=== PATIENT | female | born 1960 | race Caucasian/White ===

== ENCOUNTER → 2016-10-10 | Outpatient (CLI) | payer BC ==
--- NOTE | 2016-10-11 12:40 | MAMMOGRAPHY REPORT ---
BILATERAL DIGITAL SCREENING MAMMOGRAM TOMOSYNTHESIS WITH CAD: 10/10/2016 CLINICAL HISTORY: Asymptomatic. Personal history of breast cancer. TECHNIQUE: Bilateral breast tomosynthesis in addition to standard 2D mammography was performed. Cur rent study was also evaluated with a Computer Aided Detection (CAD) system. COMPARISON: Comparison is made to exams dated: 02/27/2015 mammogram, 02/17/2014 mammogram, 02/15/2013 mammogram, 11/18/2011 mammogram, 10/06/2010 mammogram, and 10/12/2009 mammogram. BREAST COMPOSITION: There are scattered areas of fibroglandular density in both breasts. FINDINGS: There are post-therapeutic changes in the left breast, from previous lumpectomy and radiat ion therapy. In an-shaped metallic biopsy marker is present in the upper outer middle to posterior right breast, and there are stable post biopsy changes in the central right breast at the site of pr ior biopsy. There are benign rim calcifications scattered bilaterally. No suspicious mass, archite ctural distortion or cluster of suspicious microcalcifications is seen. IMPRESSION: ACR BI-RADS CATEGORY 1: NEGATIVE There is no mammographic evidence of malignancy. A 1 year screening mammogram is recommended. Given the personal history of left breast cancer and reported history of BRCA2 positivity, consider addit ional surveillance with breast MRI. The patient will receive written notification of the results. Approximately 10% of breast cancers are not detected with mammography. A negative mammographic repor t should not delay biopsy if a clinically suggestive mass is present. Dora Mckay M.D. ay/:10/10/2016 16:47:03 Screener And Blender: Liv QUISPE)(M), [facility] letter sent: Normal 1/2 BI-RADS Code: ACR BI-RADS Category 1: Negative
== END | disposition home or self-care (01) ==
LOC: C.MAMM 13:09
PROVIDERS: ATTEND Family Medicine
DX: Z12.31 Encounter for screening mammogram for malignant neoplasm of breast (principal); Z85.3 Personal history of malignant neoplasm of breast

== ENCOUNTER → 2016-10-15 | Outpatient (CLI) | payer BC ==
[2016-10-15 13:46] LABS: CHOLESTEROL/HDL RATIO 5.2; THYROID STIMULATING HORMONE 3.46 uIu/ml (0.300-4.500)
== END | disposition home or self-care (01) ==
LOC: C.LABBC 11:44
PROVIDERS: ATTEND Family Medicine
DX: E03.9 Hypothyroidism, unspecified (principal)

== ENCOUNTER → 2017-03-07 | Outpatient (CLI) | payer BC ==
[~2017-03-07] MED LIST: GADAVIST IV PRN
--- NOTE | 2017-03-09 14:44 | MAMMOGRAPHY REPORT ---
BREAST MRI OF BOTH BREASTS : 03/07/2017 CLINICAL HISTORY: 56-year-old woman with BRCA2 gene and personal history of left breast cancer diagno sed in 2006 status post breast conservation therapy. She presents for additional MRI surveillance. COMPARISON: Comparison is made to exams dated: 02/27/2015 mammogram, 02/17/2014 mammogram, 09/05/2013 m ammogram, 02/15/2013 mammogram, 11/18/2011 mammogram, and 10/06/2010 mammogram. Prior breast MRIs dated 09/11/2015, 08/08/2014. Breast ultrasound dated 09/18/2007, diagnostic mammogram dated 09/18/2007. TECHNIQUE: Using a 1.5 Lakeshia magnet and dedicated breast coil, multisequence axial images were obtain ed through the breasts. After uneventful IV administration of 8.4 mL of Gadavist, dynamic multiphase contrast-enhanced axial images, and sagittal postcontrast were obtained. Temporal subtraction axial images and 3-D MIP images are provided. Everything was then reviewed on a 3-D workstation, [employer]. FINDINGS: Right breast: There is minimal background parenchymal enhancement. There is susceptibility artifact from a metallic biopsy marker clip in the 9:00 middle one third of the right breast. There is an irr egular nonenhancing mass of tissue 1 cm medial to the biopsy marker clip. Given the prior air pocket and small layering hematoma seen on the post-MRI biopsy mammogram images in the same location dated 09/05/2013, this most likely represents a healed biopsy cavity. This has also appeared stable on aliyah mograms and MRIs since 2012. There is a new ovoid enhancing mass in the 1:00 middle to posterior rig ht breast that measures 4.1 x 5.9 x 6.0 mm (axial page 53/116 and sagittal page 97/128). There are m ixed persistent and plateau kinetics, no associated T2 hyperintensity. This was not present on the p revious breast MRI dated 08/08/2014, and not definitely seen on the images from 09/11/2015, although not all of the images are included from that outside exam. Nevertheless, second look ultrasound with possible ultrasound-guided core biopsy is recommended. If second look ultrasound is un-yielding, MR I guided biopsy is recommended, particularly given the history of BRCA2 positivity. No other new santos picious enhancing mass, non-mass enhancement or unexpected architectural distortion is seen in the ri ght breast. No focal skin thickening or nipple retraction. No suspicious right axillary lymphadenop athy. Left breast: There is minimal background parenchymal enhancement. There is expected architectural di stortion in the far posterior left 3:00 through 4:00 and retroareolar breast, at the site of prior steff mpectomy. No new suspicious enhancing mass, non-mass enhancement, unexpected architectural distortio n or suspicious kinetics are seen within the left breast. No new focal skin thickening or nipple ret raction. No suspicious left axillary lymphadenopathy. IMPRESSION: ACR BI-RADS CATEGORY 4B: INTERMEDIATE SUSPICION FOR MALIGNANCY 1. There is a newly visualized 6 mm enhancing mass in the 1:00 right breast that is indeterminate. Targeted second look ultrasound with possible ultrasound-guided core needle biopsy is recommended. I f second look ultrasound is un-yielding, MRI guided biopsy is recommended. 2. Stable postsurgical and posttreatment changes in the 3:00 to 4:00 axis of the left breast, and st able post biopsy changes in the 9:00 right breast. No other suspicious enhancing mass, non-mass enha ncement or or suspicious kinetics is seen throughout the remainder of the right breast or the left br east. 3. No new suspicious axillary adenopathy. A phone call was made to the physician to confirm faxed results were received. The patient will be c alled to schedule an appointment. Dora Mckay M.D. ay/:03/08/2017 22:32:30 Employee Services Manager: dragline mechanic, [facility] letter sent: Abnormal 4/5 BI-RADS Code: ACR BI-RADS Category 4B: Intermediate Suspicion For Malignancy
== END | disposition home or self-care (01) ==
LOC: C.MRI 11:01
PROVIDERS: ATTEND Internal Medicine Hematology & Oncology
DX: Z85.3 Personal history of malignant neoplasm of breast (principal); N63 Unspecified lump in breast

== ENCOUNTER → 2017-03-23 | Outpatient (CLI) | payer BC ==
--- NOTE | 2017-03-23 13:23 | Discharge Instructions ---
Discharge Instructions Procedure Procedure Date: Mar 23, 2017. Reason for visit: Right Mass/2ND Look Us Possible Core. Discharge Discharge Date: Mar 23, 2017. Discharge Diagnosis: status post breast biopsy Instructions Activity Recommendations: Additional Limitations (see below) Return to School/Work: no limitations Recommended Home Diet: No Limitations Provider Instructions: ACTIVITY RECOMMENDATIONS: * No lifting, pushing, pulling or exercising the affected side for three days. RETURN TO SCHOOL/WORK: * You may return to work/school after the procedure, but do not perform any strenuous activities for 24 to 48 hours. MEDICATIONS: * Tylenol (two 325 mg) every four to six hours if needed for mild pain (if not allergic to Tylenol). DIET: * Resume previous diet. SPECIAL CARE INSTRUCTIONS: * Keep biopsy site dry for 24 hours. May shower after 24 hours, but do not soak (bathe) incision. * May remove Tegaderm (plastic patch) tomorrow AFTER showering. * Leave the steri-strips on for one week. Allow the steri-strips to fall off by themselves. If not off after one week, you may remove them. You may place a Bandaid crosswise over the strips, if desired. * Apply ice 10 minutes on and 10 minutes off as needed. * Wear a bra at bedtime to sleep more comfortably for 2-3 days. * Your referring physician should have the results after approximately 5 to 7 business days. * Call for unusual bleeding, fever, drainage, etc or if you have any questions call during normal business hours or after hours call Dr Mcgovern, . FOLLOW UP VISIT: Follow-up with Referring Physician as scheduled. James Bhakta Recommendations: Call your doctor if: * Temperature above 101 degrees * Pain not relieved by pain medicine ordered * There is increased drainage or redness from any incision * You have any unanswered questions or concerns. Your Doctors Instructions noted above were prepared by provider Maria Fernanda Mcgovern. Patient Signature Section: Patient Instructions Signature Page Gunjan Yao Patient (or Guardian) Signature/Date: I have read and understand the instructions given to me by my caregivers. Caregiver/RN/Doctor Signature/Date: The above-named patient and/or guardian has received patient instructions on this date. + Original Patient Signature Page (only) stays with chart. Please make copy for patient.
--- NOTE | 2017-03-24 08:00 | MAMMOGRAPHY REPORT ---
UNILATERAL RIGHT DIGITAL DIAGNOSTIC MAMMOGRAM: 03/23/2017 CLINICAL HISTORY: Status post ultrasound guided biopsy of the right 1:00 breast mass. TECHNIQUE: Postprocedural right CC and ML views were obtained. COMPARISON: Comparison is made to exams dated: 03/07/2017 breast MRI, 10/10/2016 mammogram - [facility], 02/27/2015 mammogram, and 02/17/2014 mammogram. BREAST COMPOSITION: There are scattered areas of fibroglandular density in the right breast. FINDINGS: A new ribbon-shaped biopsy marker clip is seen in the right breast status post ultrasound guided biopsy of the right 1:00 breast mass. The clip is located in a similar location to the findin g seen on the MRI, indicating probable correlation between the biopsied sonographic finding and the e nhancing MRI finding. No significant postbiopsy hematoma is seen. IMPRESSION: POST PROCEDURE IMAGING FOR MARKER PLACEMENT New biopsy marker clip status post ultrasound guided biopsy of the right 1:00 breast mass. Pathology results are pending. Approximately 10% of breast cancers are not detected with mammography. A negative mammographic report should not delay biopsy if a clinically suggestive mass is present. Maria Fernanda Mcgovern M.D. /:03/23/2017 13:32:06 Gaggerman: Alondra DIAZ(Irma)(Clay), [facility] BI-RADS Code: Post Procedure Imaging For Marker Placement
--- NOTE | 2017-03-24 08:09 | MAMMOGRAPHY REPORT ---
THIS REPORT HAS BEEN AMENDED. ULTRASOUND GUIDED BIOPSY RIGHT BREAST: 03/23/2017 CLINICAL HISTORY: Right 1:00 breast mass on ultrasound, which likely corresponds with the enhancing m ass on MRI. PATIENT CONSENT: The procedure, risks and benefits were discussed with the patient and informed writt en consent was obtained. A timeout was performed immediately prior to the procedure. PROCEDURE DESCRIPTION: With ultrasound guidance, aseptic technique, and lidocaine as the local anesth etic (1% lidocaine to anesthetize the skin and 1% lidocaine with epinephrine to anesthetize the deepe r tissues), the mass of concern in the right 1:00 breast was sampled 5 times with a 14-gauge Achieve biopsy needle. Immediately thereafter, with ultrasound guidance, aseptic technique, and lidocaine as the local anesthetic, a metallic localizer clip was placed at the biopsy site. Direct pressure was applied to the site immediately post procedure and hemostasis was achieved. Postprocedure unilateral mammograms were performed to confirm placement of the clip in the expected location of the breast ma ss. The patient tolerated the procedure without complication. She was given wound care instructions . The specimens were sent to pathology for analysis. COMPARISON: Comparison is made to exams dated: 03/23/2017 mammogram, 10/10/2016 mammogram, 03/07/2017 [facility], 02/27/2015 mammogram, and 02/17/2014 mammogram. IMPRESSION: ULTRASOUND GUIDED BIOPSY Ultrasound guided core needle biopsy of the right 1:00 breast mass, with clip placement. The patient will receive pathology results from her referring provider. Maria Fernanda Mcgovern M.D. ah/:03/23/2017 13:29:11 Breastfeeding Educator: Alondra DIAZ(Irma)(Clay), [facility] AMENDMENT: 03/29/2017 Maria Fernanda Mcgovern M.D. The pathology from ultrasound-guided biopsy of the right 1:00 breast mass was reviewed on 03/29/2017. The pathology shows benign breast tissue with chronic inflammation, fibrocystic change, and adenosis . The pathology is concordant with the imaging findings. Recommend follow-up bilateral breast MRI i n 6 months to confirm stability. The results and recommendations were discussed with the patient on 03/29/2017.
--- NOTE | 2017-03-24 08:10 | MAMMOGRAPHY REPORT ---
ULTRASOUND OF RIGHT BREAST: 03/23/2017 CLINICAL HISTORY: Enhancing 6 mm right 1:00 breast mass seen on recent breast MRI, for which second l ook ultrasound was recommended. History of BRCA2 gene positivity. COMPARISON: Comparison is made to exams dated: 03/23/2017 mammogram, 03/07/2017 breast MRI, and 7 mammogram - [facility]. TECHNIQUE: Real-time targeted ultrasound of the right breast was performed. FINDINGS: Real-time, high resolution targeted ultrasound was performed of the right 12 to 1:00 breas t in the region of the enhancing 6 mm mass seen on the recent breast MRI. In the right breast at 1:0 0, 3 cm from the nipple, there is a subtle round hypoechoic mass with non-circumscribed margins measu ring 4 x 4 x 5 mm. This may correspond with the enhancing mass seen on MRI. The mass is indetermina te and ultrasound-guided core needle biopsy is recommended for further evaluation. IMPRESSION: ACR BI-RADS CATEGORY 4: SUSPICIOUS - FOLLOW-UP RECOMMENDED Subtle 5 mm hypoechoic mass in the right 1:00 breast on ultrasound, which likely corresponds with the enhancing mass seen on MRI. The mass is indeterminate and ultrasound-guided core needle biopsy is r ecommended for further evaluation. The results were reviewed with the patient. The biopsy was performed immediately after the ultrasoun d exam. Maria Fernanda Mcgovern M.D. ah/:03/23/2017 13:27:35 Application Architect Manager: Maria Fernanda Mcgovern MD, [facility] BI-RADS Code: ACR BI-RADS Category 4: Suspicious
== END | disposition home or self-care (01) ==
LOC: C.MAMM 12:36
PROVIDERS: ATTEND Internal Medicine Hematology & Oncology
DX: N63 Unspecified lump in breast (principal); N60.11 Diffuse cystic mastopathy of right breast; N60.21 Fibroadenosis of right breast

== ENCOUNTER → 2017-07-15 | Outpatient (CLI) | payer BC ==
[2017-07-15 11:36] LABS: CHOLESTEROL/HDL RATIO 6.2; THYROID STIMULATING HORMONE 4.28 uIu/ml (0.300-4.500)
== END | disposition home or self-care (01) ==
LOC: C.LABBC 09:57
PROVIDERS: ATTEND Physician Assistant
DX: I10 Essential (primary) hypertension (principal); E03.9 Hypothyroidism, unspecified; E78.5 Hyperlipidemia, unspecified

== ENCOUNTER → 2017-09-20 | Outpatient (CLI) | payer BC ==
--- NOTE | 2017-09-21 14:34 | MAMMOGRAPHY REPORT ---
BREAST MRI OF BOTH BREASTS : 09/20/2017 CLINICAL HISTORY: History of benign core needle biopsy of a right 1:00 breast mass March 2017. Also w ith history of left breast cancer status post lumpectomy and remote benign right breast biopsy. The patient is positive for BRCA2 gene. COMPARISON: Comparison is made to exams dated: 03/23/2017 ultrasound biopsy, 03/23/2017 mammogram, 10/10 mammogram, 03/07/2017 breast MRI - [facility], 02/27/2015 mammogram, and 02/18/20 14 mammogram. Prior breast MRI dated 08/08/2014. Technique: The patient was placed prone in a dedicated breast imaging coil. Precontrast axial T1-yonas ghted, axial T2-weighted fat saturation, and axial T1-weighted fat saturation images were obtained. After the administration of 8.5 mL of Gadavist IV contrast, sequential T1-weighted fat saturation dejan ges were obtained. Subtraction images were obtained of the dynamic contrast enhanced sequences, and 3-D reformations were performed. The [employer] software was used for kinetic analysis. Findings: Right breast: There is mild background parenchymal enhancement. Susceptibility artifact is seen from biopsy marker clip in the right 1:00 breast middle depth at the site of prior benign core needle bio psy; the previously seen enhancing lesion in the right 1:00 breast is no longer evident. Given the b enign pathology on core needle biopsy and given the decreased prominence, the finding is considered b enign. In the right breast at 1:00 far posteriorly, there is a 5 mm enhancing focus which demonstrat es corresponding T2 hyperintensity and a mixed plateau/persistent kinetic pattern (series [id number] image 48). In retrospect, similar enhancement was seen in this region on the prior 03/07/2017 exam. The fo cus is probably benign and follow-up is recommended. The remainder of the right breast demonstrates no suspicious enhancing masses or areas of abnormal non-mass enhancement. Clip artifact is seen with in the right 9 o'clock breast from prior benign biopsy. Left breast: There is mild background parenchymal enhancement. Again noted are postsurgical changes in the left lower outer posterior breast from prior lumpectomy. As before, the left breast is smalle r than the right. There are no suspicious enhancing masses or areas of abnormal non-mass enhancement within the left breast. There is no evidence of axillary adenopathy. The chest wall structures are negative. Extramammary s oft tissues are grossly unremarkable. IMPRESSION: ACR-BI-RADS CATEGORY 3: PROBABLY BENIGN 1. The biopsied enhancing lesion within the right 1:00 breast is no longer evident, and is considere d benign given the benign pathology and resolution. 2. Enhancing 5 mm focus in the right 1:00 posterior breast is probably benign. Recommend follow-up bilateral breast MRI in 6 months to confirm stability, especially given the history of BRCA2 gene pos itivity. 3. No MRI evidence of malignancy in the left breast. Maria Fernanda Mcgovern M.D. ah/:09/20/2017 19:12:44 Vp Client Services: baster hand, [facility] letter sent: Follow Up Recommended 3 BI-RADS Code: ACR-BI-RADS Category 3: Probably Benign
== END | disposition home or self-care (01) ==
LOC: C.MRI 07:35
PROVIDERS: ATTEND Internal Medicine Hematology & Oncology
DX: Z85.3 Personal history of malignant neoplasm of breast (principal); Z08 Encounter for follow-up examination after completed treatment for malignant neoplasm; R92.8 Other abnormal and inconclusive findings on diagnostic imaging of breast

== ENCOUNTER → 2017-11-01 | Outpatient (CLI) | payer BC | END | disposition home or self-care (01) | LOC: C.PAPS 18:30 | PROVIDERS: ATTEND Physician Assistant | DX: Z01.419 Encounter for gynecological examination (general) (routine) without abnormal findings (principal); Z11.51 Encounter for screening for human papillomavirus (HPV) ==

== ENCOUNTER → 2017-11-18 | Outpatient (CLI) | payer BC ==
[2017-11-18 10:39] LABS: ALBUMIN 3.9 gm/dl (3.4-5.0); ALT/SGPT 42 U/L (12-78); BLOOD UREA NITROGEN 21 mg/dl (7-18); CALCIUM 8.8 mg/dl (8.5-10.1); CARBON DIOXIDE 29 mmol/L (21-32); CHOLESTEROL 336 mg/dl (0-200); CREATININE 0.93 mg/dl (0.60-1.20); GLUCOSE 95 mg/dl (70-99); POTASSIUM 4.6 mmol/L (3.5-5.1); SODIUM 140 mmol/L (136-145)
[2017-11-18 10:49] LABS: ALKALINE PHOSPHATASE 62 U/L (45-117); AST/SGOT 23 U/L (15-37); LDL CHOLESTEROL CALCULATED 259 mg/dl; TOTAL PROTEIN 7.4 gm/dl (6.4-8.2)
[2017-11-18 11:21] LABS: HEMOGLOBIN A1C 5.7 % (4.5-5.6)
== END | disposition home or self-care (01) ==
LOC: C.LAB 09:55
PROVIDERS: ATTEND Family Medicine
DX: E03.9 Hypothyroidism, unspecified (principal); E78.5 Hyperlipidemia, unspecified; R73.9 Hyperglycemia, unspecified

== ENCOUNTER → 2018-04-20 | Outpatient (CLI) | payer BC ==
[2018-04-20 16:35] LABS: BASO % 0.4 %; BASO ABS # 0.03 K/uL (0-0.2); EOS % 1.7 %; EOS ABS # 0.14 K/uL (0-0.5); HEMATOCRIT 44.3 % (37-47); HEMOGLOBIN 15.1 g/dL (12.0-16.0); IG# 0.01 K/uL (0.00-0.02); LYMPH % 39.6 %; LYMPH ABS # 3.24 K/uL (1.2-3.4); MEAN CELL VOLUME 90.6 fL (80-100); MEAN CORPUSCULAR HEMOGLOBIN 30.9 pg (25-34); MEAN CORPUSCULAR HGB CONC 34.1 g/dl (32-36); MEAN PLATELET VOLUME 10.8 fL (7.4-10.4); MONO % 7.1 %; MONO ABS # 0.58 K/uL (0.11-0.59); NEUT % 51.1 %; NEUT ABS # 4.18 K/uL (1.4-6.5); PLATELET COUNT 219 K/uL (130-400); RED CELL DISTRIBUTION WIDTH CV 13.4 % (11.5-14.5); RED CELL DISTRIBUTION WIDTH SD 43.7 fL (36.4-46.3); WHITE BLOOD COUNT 8.18 K/uL (4.8-10.8)
[2018-04-20 17:13] LABS: ALBUMIN 3.8 gm/dl (3.4-5.0); ALKALINE PHOSPHATASE 57 U/L (45-117); ALT/SGPT 34 U/L (12-78); AST/SGOT 19 U/L (15-37); BLOOD UREA NITROGEN 15 mg/dl (7-18); CALCIUM 8.8 mg/dl (8.5-10.1); CARBON DIOXIDE 29 mmol/L (21-32); GLUCOSE 89 mg/dl (70-99); POTASSIUM 3.6 mmol/L (3.5-5.1); SODIUM 138 mmol/L (136-145); TOTAL PROTEIN 7.4 gm/dl (6.4-8.2)
== END | disposition home or self-care (01) ==
LOC: C.LAB1850 15:13
PROVIDERS: ATTEND Family Medicine
DX: R51 Headache (principal); R53.81 Other malaise; R53.83 Other fatigue

== ENCOUNTER → 2018-05-26 | Outpatient (CLI) | payer BC | END | disposition home or self-care (01) | LOC: C.LAB1850 11:23 | PROVIDERS: ATTEND Family Medicine | DX: E03.9 Hypothyroidism, unspecified (principal) ==

== ENCOUNTER 2019-02-06 05:20 | Observation (INO) ==
--- NOTE | 2019-01-25 15:54 | PAT Medication Instructions ---
Medication Instructions Date of Service January 25, 2019 Home Medications citalopram 20 mg PO QPM esomeprazole magnesium [Nexium] 20 mg PO QAM levothyroxine 75 mcg PO QAM Take morning of surgery With a small sip of water, OTHERWISE NOTHING TO EAT OR DRINK AFTER MIDNIGHT: esomeprazole magnesium [Nexium] 20 mg PO QAM levothyroxine 75 mcg PO QAM Take evening before surgery citalopram 20 mg PO QPM Other Notes If you have any questions please call us at [phone] or [phone] or [phone] or [phone]
--- NOTE | 2019-01-28 09:22 | Anesthesiology Consultation ---
Date of Service January 28, 2019 Assessment & Plan (1) Encounter for pre-operative examination: Chart Review Chart Review: Acceptable Risk for Surgery and Patient seen in Pre Admission Testing Teaching & Discussion Instructed NPO after midnight before surgery, except medications with 15 cc of water. Medication instructions provided according to the PAT guidelines. History Surgery Operation Date: 02/06/19 07:30 Proposed Procedures p Bilateral Prophylactic Breast Mastectomy - Heber Howard DO, FACS s First Stage Bilateral Immediate Breast Reconstruction with Tissue Tailings Dam Laborer and Acellular Dermal Matrix - Dr. Castro - Ilda Castro MD Height/Weight Height: 5 ft 2 in Weight: 86.8 kg Allergies Allergy/AdvReac Type Severity Reaction Status Date / Time silver Allergy Intermediate Blister Verified 01/25/19 10:19 [From Tegaderm AG Mesh] STATINS Allergy Mild ELEVATED Uncoded 06/27/18 10:11 LFTS Medications Home Medications Medication Instructions Recorded Confirmed Last Taken citalopram 20 mg PO QPM 06/27/18 01/25/19 07/01/18 21:00 esomeprazole magnesium [Nexium] 20 mg PO QAM 06/27/18 01/25/19 07/01/18 21:00 levothyroxine 75 mcg PO QAM 06/27/18 01/25/19 07/02/18 06:30 Past Medical History Medical History Anxiety Breast cancer, left breast 2006--SX AND CHEMO/RADIATION Deep vein thrombosis 2012-LEFT LEG D/T IMMOBILITY FROM ANKLE FX, TX WITH COUMADIN Depression GERD (gastroesophageal reflux disease) Hyperlipidemia Hypothyroidism Nausea and vomiting after administration of anesthetic agent Past Family History Family History Mother Family history of diabetes mellitus Past Surgical History Surgical History H/O bilateral salpingo-oophorectomy H/O breast biopsy 09/2007 MALIGNANT History of appendectomy History of colonoscopy History of esophagogastroduodenoscopy (EGD) History of lumpectomy of left breast 10/2007 WITH LYMPH NODE REMOVAL History of tonsillectomy and adenoidectomy History of tooth extraction WISDOM TEETH Past Anesthesia History No Hx of Anesthesia Complications (other than PONV) and No Family Hx of Anesthesia Complications History of PONV Yes Motion Sickness Screening History of Motion Sickness: Yes Social History Smoking Status: Never smoker Do You Dip or Chew Tobacco: No Hx Alcohol Use: Yes Alcohol type: other alcohol intake frequency: holidays/special occasions only Alcohol Intake Frequency Comment: RARE Hx Substance Use: No substance use type: does not use Exercise / Class Metabolic Activity II 4-5 Yardwork/Stairs/Walk up hill Review of Systems Pt denies any recent chest pain, shortness of breath, palpitations, cough, fever or URI. Physical Exam Vital Signs BP: 145/88 (pt advised to monitor and f/u with PCP) P: 70bpm SPO2: 97% RA T: 97.7 F R: 16 ENMT Mouth: + dental restorations (two crowns, one on upper L incisor, one on molar); no chipped teeth and no loose teeth Thyromental Distance: > or= 3.5 Finger Breadths (3.5) Mallampati Class: II Neck normal visual inspection; neck extension not limited Respiratory normal respiratory effort Auscultation: lungs clear to auscultation bilaterally Cardiovascular Rate/Rhythm: regular rate Heart Sounds: no murmur Vessels: no carotid bruit Extremities: no edema Testing Electrocardiogram Date: 01/28/19 Findings: + NSR @ (75) NSTWA. Prolonged QT. Laboratory Results 01/28/19 09:38 01/28/19 09:38 PT 9.8 Seconds (9.0-12.0) 01/28/19 09:38 INR 1.0 (0.9-1.1) 01/28/19 09:38 APTT 25.0 Seconds (21.0-31.0) 01/28/19 09:38
[2019-01-28 10:59] LABS: Basophils # (auto) 0.03 K/uL (0-0.2); Basophils % (auto) 0.5 %; Eosinophils # (auto) 0.16 K/uL (0-0.5); Eosinophils % (auto) 2.6 %; Hematocrit (blood only) 47.8 % (37-47); Immature Granulocytes # (auto) 0.01 K/uL (0.00-0.02); Immature Granulocytes % (auto) 0.2 %; Lymphocytes # (auto) 1.73 K/uL (1.2-3.4); Lymphocytes % (auto) 28.6 %; Mean Corpuscular Hgb Conc 33.5 g/dL (32-36); Mean Platelet Volume 10.9 fL (7.4-10.4); Monocytes # (auto) 0.56 K/uL (0.11-0.59); Monocytes % (auto) 9.3 %; Neutrophils # (auto) 3.56 K/uL (1.4-6.5); Neutrophils % (auto) 58.8 %; Platelet Count 206 K/uL (130-400); RDW Coefficient of Variation 14.9 % (11.5-14.5); RDW Standard Deviation 49.9 fL (36.4-46.3); Red Blood Count 5.25 M/uL (4.2-5.4); White Blood Count 6.05 K/uL (4.8-10.8)
[2019-01-28 11:19] LABS: Partial Thromboplastin Ratio 0.9; Prothrombin Time 9.8 Seconds (9.0-12.0)
[2019-01-28 11:22] LABS: Albumin Level 3.8 gm/dl (3.4-5.0); BUN Creatinine Ratio 19.3 (10-20); Bilirubin Direct 0.1 mg/dl (0-0.2); Bilirubin,Total 0.5 mg/dl (0.2-1); Calcium 9.1 mg/dl (8.5-10.1); Creatinine Clr Calc Pharmacy 81.4 ml/min; Est GFR (African American) 97.8; Est GFR (Non-African American) 84.4; Potassium 4.7 mmol/L (3.5-5.1); Total Protein 7.4 gm/dl (6.4-8.2)
--- OUTSIDE RECORDS SUMMARY | 2019-02-06 05:24 | External Medical Summary | Continuity of Care Document ---
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 0) Need for hepatitis C screening test (V73.89) (Z11.59) On statin therapy (V58.69) (Z79.899) Visit for screening mammogram (V76.12) (Z12.31) Anxiety (300.00) (F41.9) Female stress incontinence (625.6) (N39.3) Pre-operative exam (V72.84) (Z01.818) Encounter for breast reconstruction following mastectomy (V5 1.0) (Z42.1) Allergies and Adverse Reactions Adhesive Paper TAPE (Allergy) Crestor TABS (Allergy) Reaction: Myalgia , Hypertension Lipitor TABS (Allergy) Reaction: Myalgia , Hypertension pravastatin (Allergy) Reaction: Myalgia Questran (Allergy) simvastatin (Allergy) Reaction: Myalgia, Hypertension Tegaderm Film 1-3/4"x1-3/4" MISC (Allergy) Welchol (Allergy) Reaction: Myalgia Medications Citalopram Hydrobromide 20 MG Oral Table t; take 1 tablet by mouth once daily as directed Miguel Lopez Start: 12-Sep-2018 Quantity: 30 Refills: 5 Levothyroxine Sodium 75 MCG Oral Tablet; TAKE 1 TABLET DAILY. Miguel Lopez Start: 17-Aug-2016 Quantity: 30 Refills: 5 NexIUM 24HR 20 MG Oral Capsule Delayed Release; TAKE 1 CAPSU LE ONCE DAILY. Start: 09-Nov-2017 Refills: 0 Endocet 5-325 MG Oral Tablet; TAKE 1 TAB LET EVERY 4 TO 6 HOURS NEEDED FOR PAIN. DOMENIC Camilo Start: 22-Jan-2019 Quantity: 18 Refills: 0 Cephalexin 500 MG Oral Capsule; TAKE 1 CAPSULE 3 TIMES DAILY UNTIL GONE. DOMENIC Camilo Start: 22-Jan-2019 Quantity: 21 Refills: 0 Procedures Comp Metabolic Panel Date: 07-Dec-2018 Hemoglobin A1C Date: 07-Dec-2018 Lipid Profile - Fasting w Reflx to LDL Date: 07-Dec-2018 Ultra TSH Date: 07-Dec-2018 History of Tonsillectomy Status: Complet ed History of Adenoidectomy Status: Complet ed History of Appendectomy Status: Complete d History of Breast Surgery Lumpectomy Sta tus: Completed History of Oophorectomy - Bilat (Removal Of Both Status: Completed Ovaries) Laparoscopic Immunizations Td On: Oct-2003 Tdap (Adacel) On: 11-Aug-2008 Family History Mother Family history of lung cancer (V16.1) (Z80.1) Status: Active Family history of diabetes mellitus (V18.0) (Z83.3) Status: Active Family history of lupus anticoagulant disorder (V18.3) (Z83. 2) Status: Active Family history of thyroid disease (V18.19) (Z83.49) Status: Active Family history of CAD (coronary artery disease) (414.0 0) (I25.10) Status: Active Family history of lung cancer (V16.1) (Z80.1) Status: Active Family history of diabetes mellitus (V18.0) (Z83.3) Status: Active Family history of gallbladder disease (V18.59) (Z83.79) Stat us: Active Family history of cardiac disorder (V17.49) (Z82.49) Status: Active Family history of hypertension (V17.49) (Z82.49) Status: Act renetta Family history of myocardial infarction (V17.3) (Z82.49) Sta tus: Active Family history of Status: Active Sister Family history of lupus anticoagulant disorder (V18.3) (Z83. 2) Status: Active Family history of Anxiety (300.00) (F41.9) Status: Active Family history of depression (V17.0) (Z81.8) Status: Active Father Family history of lung cancer (V16.1) (Z80.1) Status: Active Family history of Status: Active aunt Family history of Ovarian cancer (183.0) (C56.9) Status: Act renetta Plan of Treatment Planned Encounters Appointment; Camila Camilo PA-C Start: 21-Feb-2019 10:00 Re quest Planned Observations Planned Goals not documented Results CBC With DIFF Laboratory: [facility] [address] [place] [address] tel: 28-Jan-2019 9:38 WBC 6.05 K/uL Range: 4.8-10.8 K/u L RBC 5.25 {M/uL} Range: 4.2-5.4 M/uL HEMOGLOBIN 16.0 g/dL Range: 12.0-16.0 g /dL HEMATOCRIT 47.8 % (above high Range: 37 -47 % threshold) MCV 91.0 fL Range: 80-100 fL MCH 30.5 pg Range: 25-34 pg MEAN CORPUSCULAR HGB CONC 33.5 Range: 3 2-36 g/dL g/dL RED CELL DISTRIBUTION WIDTH SD Range: 3 6.4-46.3 fL 49.9 fL (above high threshold) RED CELL DISTRIBUTION WIDTH CV Range: 1 1.5-14.5 % 14.9 % (above high threshold) PLATELET COUNT 206 K/uL Range: 130-400 K/uL MEAN PLATELET VOLUME 10.9 fL Range: 7.4 -10.4 fL (above high threshold) NEUT % 58.8 % Range: % LYMPH % 28.6 % Range: % MONO % 9.3 % Range: % EOS % 2.6 % Range: % BASO % 0.5 % Range: % IG% 0.2 % Range: % Comments: IG paramet er reflects the combination of Metas, Myelos andPromyelocytes. Neutrophils (Auto) 3.56 K/uL Range: 1. 4-6.5 K/uL LYMPH ABS # 1.73 K/uL Range: 1.2-3.4 K/ uL MONO ABS # 0.56 K/uL Range: 0.11-0.59 K /uL EOS ABS # 0.16 K/uL Range: 0-0.5 K/uL BASO ABS # 0.03 K/uL Range: 0-0.2 K/uL IG# 0.01 K/uL Range: 0.00-0.02 K/ uL PT/INR Laboratory: [facility] [address] [facility] [address] tel: 28-Jan-2019 9:38 Prothrombin Time 9.8 {Seconds} Range: 9 .0-12.0 Seconds INR 1.0 Range: 0.9-1.1 PTT Laboratory: [facility] [address] [facility] [address] tel: 28-Jan-2019 9:38 PTT PATIENT 25.0 {Seconds} Range: 21.0- 31.0 Seconds Comments: Therapeuti c APTT range is 46.0 - 66.4 seconds PARTIAL THROMBOPLASTIN RATIO 0.9 Liver Panel Laboratory: [facility] [address] (Albumin,Tot Prot,Alk [facility] Phos,Bili [address] tel: Dir,ALT/SGPT,AST/SGOT,B lizy-Tot) 28-Jan-2019 9:38 Bilirubin, Total 0.5 mg/dl Range: 0.2-1 mg/dl Bilirubin, Direct 0.1 mg/dl Range: 0-0. 2 mg/dl AST/SGOT 29 U/L Range: 15-37 U/L ALT/SGPT 48 U/L Range: 12-78 U/L TOTAL PROTEIN 7.4 {gm/dl} Range: 6.4-8. 2 gm/dl ALBUMIN 3.8 {gm/dl} Range: 3.4-5.0 gm/d l ALKALINE PHOSPHATASE 51 U/L Range: 45-1 17 U/L Basic Metabolic Panel Laboratory: [facility] [address] [facility] [address] tel: 28-Jan-2019 9:38 SODIUM 138 mmol/L Range: 136-145 mmol /L POTASSIUM 4.7 mmol/L Range: 3.5-5.1 mmo l/L CHLORIDE 105 mmol/L Range: 98-107 mmol/ L CARBON DIOXIDE 29 mmol/L Range: 21-32 m mol/L ANION GAP 4.0 Range: 3-11 BLOOD UREA NITROGEN 15 mg/dl Range: 7-1 8 mg/dl CREATININE 0.78 mg/dl Range: 0.6-1.2 mg /dl Estimated Creatinine Clearance Range: m l/min 81.4 ml/min Comments: Est. Creat inine Clearance (Mod Cockcroft-Gault) for pharmacydosing purposes. Estimated GFR () Comment s: Units: ml/min per 97.8 1.73 meters squaredT he estimated GFR (CKD-E PI equation) has not be en validatedfor inpatie nt settings and may not be an accurate reflectiono f renal function in critical ly ill patients or those withrapidly changing renal function (e.g. JACKY). Estimated GFR (Non- Comments: Uni ts: ml/min per [facility]) 84.4 1.73 meters squaredT he estimated GFR (CKD-E PI equation) has not be en validatedfor inpatie nt settings and may not be an accurate reflectiono f renal function in critical ly ill patients or those withrapidly changing renal function (e.g. JACKY). BUN/CREATININE RATIO 19.3 Range: 10-20 GLUCOSE 111 mg/dl (above high Range: 70 -99 mg/dl threshold) CALCIUM 9.1 mg/dl Range: 8.5-10.1 mg/ dl Vital Signs 24-Jan-2019 9:51 Systolic 152 mm[Hg] Diastolic 89 mm[Hg] Respiration 16 /min Heart Rate 70 /min Weight 192.2 lb Height 62 in BSA Calculated 1.88 m2 BMI Calculated 35.15 kg/m2 Encounters Appointment; Heber Howard DO 24-Jan-2019 9:40 Encounter Diagnosis: Problem not documented Appointment; Camila Camilo PA-C 22-Jan-2019 10:00 Encounter Diagnosis: Problem not documented Appointment; Kenyatta Lopez M.D. 07-Dec-2018 8:20 Encounter Diagnosis: Problem not documented Appointment; Elysia Mcintosh CRNP 08-Nov-2018 8:30 Encounter Diagnosis: Problem not documented Appointment; Ilda Castro M.D. 02-Nov-2018 10:00 Encounter Diagnosis: Problem not documented Appointment; Heber Howard DO 17-Sep-2018 9:20 Encounter Diagnosis: Problem not documented Appointment; Keynatta Lopez M.D. 01-Aug-2018 11:00 Encounter Diagnosis: Problem not documented Appointment; Kenyatta oLpez M.D. 20-Apr-2018 14:40 Encounter Diagnosis: Problem not documented Appointment; Kenyatta Lopez M.D. 09-Nov-2017 14:20 Encounter Diagnosis: Problem not documented Appointment; Dora Guthrie PA-C 01-Nov-2017 15:00 Encounter Diagnosis: Problem not documented Appointment; Dora Alvarez PA-C 21-Jul-2017 13:30 Encounter Diagnosis: Problem not documented Appointment; Kenyatta Lopez M.D. 14-Feb-2017 14:20 Encounter Diagnosis: Problem not documented Appointment; Camila Camilo PA-C 21-Feb-2019 10:00 Encounter Diagnosis: Problem not documented
[2019-02-06] MEDS ORDERED: LR 15ML/HR IV SCH (06:00)
[2019-02-06] MEDS ORDERED: CEFAZOLIN 2000MG 2,000 MG/15 ML SYR IV SCH (06:00)
[2019-02-06] MEDS ORDERED: ACETAMINOPHEN 1000 MG/100 ML IV IV ONE (06:50)
[2019-02-06] MEDS ORDERED: ONDANSETRON INJ 2 MG/ML 2 ML VIAL ONE ×2 (06:56→13:01)
[2019-02-06] MEDS ORDERED: LIDOCAINE HCL 2% 2 ML VIAL/AMP(20MG/ML) INFIL ONE (06:56)
[2019-02-06] MEDS ORDERED: MIDAZOLAM HCL 1 MG/ML 2ML VIAL ONE (06:56)
[2019-02-06] MEDS ORDERED: PROPOFOL IV EMULSION 10 MG/ML 20 ML VIAL IV ONE (06:56)
[2019-02-06] MEDS ORDERED: HYDROmorphone INJ 2 MG/ML SYR/VIAL ONE (06:56)
[2019-02-06] MEDS ORDERED: DEXAMETHASONE SOD INJ 4 MG/ML VIAL ONE (06:56)
[2019-02-06] MEDS ORDERED: fentaNYL citrate 100 MCG/2 ML VIAL ONE ×2 (06:56→08:20)
--- NOTE | 2019-02-06 06:56 | History & Physical Bridge Note ---
Date of Service February 06, 2019 History & Physical Bridge Note I have examined the patient, reviewed the History & Physical and in the interval since the performance of the History & Physical I have noted the following changes of clinical significance: no changes noted
[2019-02-06] MEDS ORDERED: BUPIVACAINE 0.5 % 5 MG/1 ML MPF 30ML VIAL ONE (06:57)
[2019-02-06] MEDS ORDERED: LIDOCAINE/EPINEPHRINE 1% 20 ML VIAL ONE (06:57)
[2019-02-06] MEDS ORDERED: CEFAZOLIN 250 MG/ML 1 GM VIAL ONE ×2 (06:57→11:02)
[2019-02-06] MEDS ORDERED: BUPIVACAINE 0.25% 30 ML VIAL ONE (06:57)
[2019-02-06] MEDS ORDERED: GENTAMICIN SULFATE 40 MG/ML 2 ML VIAL ONE (06:57)
[2019-02-06] MEDS ORDERED: BUPIVACAINE LIPOSOME 1.3% 266 MG/20 ML VIAL ONE (06:58)
[2019-02-06] MEDS ORDERED: BACITRACIN INJ 50,000 UNIT VIAL ONE (06:58)
[2019-02-06] MEDS ORDERED: SCOPOLAMINE 1.5 MG TDSY ONE (07:14)
[2019-02-06] MEDS ORDERED: KETAMINE HCL INJ 50 MG/ML 10 ML VIAL ONE ×2 (07:48→08:22)
[2019-02-06] MEDS ORDERED: PROMETHAZINE HCL 12.5 MG in SODIUM CHLORIDE 0.9% 50 ML IV PRN ×2 (08:01→13:09)
[2019-02-06] MEDS ORDERED: ATROPINE SULFATE 0.1 MG/ML 10ML SYR IV PRN (08:01)
[2019-02-06] MEDS ORDERED: HYDROmorphone INJ 1 MG/ML SYRINGE IV PRN (08:01)
[2019-02-06] MEDS ORDERED: ePHEDrine sulfate 50 MG/ML AMP IV PRN (08:01)
[2019-02-06] MEDS ORDERED: ONDANSETRON INJ 2 MG/ML 2 ML VIAL IV PRN ×2 (08:01→13:09)
[2019-02-06] MEDS ORDERED: fentaNYL citrate 100 MCG/2 ML VIAL IV PRN (08:01)
--- NOTE | 2019-02-06 09:56 | Operative Report ---
Post Operative Report Pre & Post Diagnosis Pre op Diagnosis: BRCA, history of breast cancer Post op Diagnosis: BRCA, history of breast cancer Procedure Operation Date: 02/06/19 07:30 Actual Procedures p Bilateral Prophylactic Breast Mastectomy(Bilateral) - Heber Howard DO, FACS s First Stage Bilateral Immediate Breast Reconstruction with Tissue Commercial Analyst and Acellular Dermal Matrix - Dr. Castro(Bilateral) - Ilda Castro MD Surgeon Heber Howard DO, FACS Oracle Database Analyst John Camilo Estimated Blood Loss 10 Findings Consistent with Post-Op Diagnosis Specimens Left breast Right breast Anesthesia Type General Complications none Disposition Accompanied Patient To Recovery: No Disposition: Recovery Room Indications 58-year-old female with history of left breast cancer status post lumpectomy and radiation, and history of BRCA gene mutation, plan for bilateral prophylactic m astectomies with reconstruction by plastics. The risks of the procedure were discussed, all questions were answered, and the patient agreed to proceed with surgery as planned. Description of Procedure The patient was properly identified, consented, and taken to the operating room where she was placed in the supine position. General endotracheal anesthesia was induced. SCDs and a safety belt were placed. Preoperative antibiotics were administered. The patient's bilateral breast, chest, arm, and axilla were prepped and draped in the standard sterile fashion. Surgical timeout was performed and all parties were in agreement that this was the correct patient and procedure to be performed and we continued as planned. A transversely oriented elliptical incision was made that encompassed the nipple-arreolar complex on the left. Flaps were raised to the clavicle superiorly, the sternum medially, and the rectus sheath inferiorly. The breast was then taken off the chest wall including the pectoralis fascia from superior medial to inferior lateral. We then continued the dissection along the lateral border of the pectoralis muscle. We completed the dissection and the specimen was removed. The specimen was oriented. The wound was irrigated and hemostasis was confirmed. A wet laparotomy sponge was placed in the incision, and our attention turned to the right side. A transversely oriented elliptical incision was made that encompassed the nipple-arreolar complex on the right. Flaps were raised to the clavicle superiorly, the sternum medially, and the rectus sheath inferiorly. The breast was then taken off the chest wall including the pectoralis fascia from superior medial to inferior lateral. We then continued the dissection along the lateral border of the pectoralis muscle. We completed the dissection and the specimen was removed. The specimen was oriented. The wound was irrigated and hemostasis was confirmed. A wet laparotomy sponge was placed in the incision, and the case was turned over to Dr. Castro with plastic surgery. Pulmonary counts were performed and were correct. Total blood loss for my portion of the procedure was 10 cc. Camila Camilo was present and scrubbed for the entirety of the procedure. She was critical in positioning the patient, prepping and draping, retraction and exposure, and resection of the specimen. I attest to the content of the Intraoperative Record and any orders documented therein. Any exceptions are noted below.
[2019-02-06] MEDS ORDERED: ePHEDrine sulfate 50 MG/ML SYR ONE (11:02)
[2019-02-06] MEDS ORDERED: PHENYLEPHRINE 100MCG/ML 5ML SYR ONE (11:02)
[2019-02-06] MEDS ORDERED: GLYCOPYRROLATE 0.2 MG/ML VIAL ONE ×2 (12:31→12:32)
[2019-02-06] MEDS ORDERED: NEOSTIGMINE METHYLSULFATE 5 MG/5 ML SYR ONE (12:31)
--- NOTE | 2019-02-06 13:04 | Post Operative Brief Note ---
Immediate Post Op Note v1 Date of Surgery February 06, 2019 Pre & Post Diagnosis Operation Date: 02/06/19 07:30 Pre-Op Diagnosis: History of Breast Cancer, Genectic Susceptibility, BRCA Post-Op Diagnosis: History of Breast Cancer, Genectic Susceptibility, BRCA Procedure Operation Date: 02/06/19 07:30 Actual Procedures p Bilateral Prophylactic Breast Mastectomy(Bilateral) - Heber Howard, DO, FACS s First Stage Bilateral Immediate Breast Reconstruction with Tissue Civil Project Engineer and Acellular Dermal Matrix - Dr. Castro(Bilateral) - Ilda Castro MD Surgeon Ilda Castro MD Valuation Manager John Camilo Estimated Blood Loss 20 (10 mL EBL Lee, 10 mL EBL Matthew) Findings Consistent with Post-Op Diagnosis Drains Gopal-Cain Drain (15 Chinese x's 2) Anesthesia Type General
[2019-02-06] MEDS ORDERED: MoRPHine SULFATE 2 MG/ML CARP IV PRN (13:09)
[2019-02-06] MEDS ORDERED: OXYCODONE/ACETAMINOPHEN 5mg/325mg TAB PO PRN (13:09)
[2019-02-06] MEDS ORDERED: OXAZEPAM 10 MG CAPSULE PO PRN (13:09)
[2019-02-06] MEDS ORDERED: MoRPHine SULFATE 4 MG/ML 1 ML CARP\\VIAL IV PRN ×2 (13:09)
[2019-02-06] MEDS ORDERED: DiphenhydrAMINE HCL 50 MG/ML VIAL IV PRN (13:09)
[2019-02-06] MEDS ORDERED: ACETAMINOPHEN 325 MG TAB PO PRN (13:09)
--- NOTE | 2019-02-06 13:24 | Operative Report ---
Post Operative Report Pre & Post Diagnosis Operation Date: 02/06/19 07:30 Pre-Op Diagnosis: History of Breast Cancer, Genetic Susceptibility, BRCA Post-Op Diagnosis: History of Breast Cancer, Genetic Susceptibility, BRCA Procedure Operation Date: 02/06/19 07:30 Actual Procedures p Bilateral Prophylactic Breast Mastectomy(Bilateral) - Heber Howard DO, DON s First Stage Bilateral Immediate Breast Reconstruction with Tissue Kettle Chipper and Acellular Dermal Matrix - Dr. Castro(Bilateral) - Ilda Castro MD Surgeon Ilda Castro MD Dividend Deposit Entry Clerk Jhon Camilo Estimated Blood Loss 20 (10 mL EBL Lee, 10 mL EBL Matthew) Findings Consistent with Post-Op Diagnosis Specimens none Drains JESSICA x2 Anesthesia Type General Complications none Indications BRCA positive, s/p left breast CA tx with lumpectomy/XRT Description of Procedure I began with the left side. Hemostasis was achieved with electrocautery. Wound was inspected, and there was a rent in the left medial pectoralis, as well as near continuity of the mastectomy defects due to pre-existing symmastia. Pectoralis major muscle was then identified and elevated. Inferior attachments of pectoralis major muscle were divided along the ribs medially to the sternum. Sternal attachments were very weak from the mastectomy dissection. The retropectoral plane was then developed using electrocautery. Hemostasis was achieved using cautery. Once adequate dissection had been performed, I then chose a piece of 12 thick AlloDerm which was then used to create a sling for the lower pole. This was first sutured to the sternum and pectoralis muscle to reinforce the weakened attachments using U stitches, then to the inframammary fold using 2-0 Vicryl U stitches. Pocket was then measured and base diameter was 13 cm. Therefore, I selected a 13 cm Allergan style 133 MVT tissue student liaison officer with a suggested fill volume 400 mL. The student liaison officer was prepared and air was aspirated out. The student liaison officer was soaked in antibiotic irrigation and antibiotic irrigation was used to irrigate the pocket. All instruments were wiped down and gloves were changed. Kettle Chipper was placed along the inframammary fold as medially as possible. Suture tabs were sutured down to underlying periosteum using a 3-0 ODS suture. The remainder of the student liaison officer was then enclosed using 2-0 Vicryl running suture to reapproximate the AlloDerm which had been trimmed to size and this was approximated to the pectoralis major muscle using a pants over vest interrupted suture. Laterally, this was closed down using 2-0 Vicryl interrupted sutures as well. A 15-Barbadian Paramjit drain was placed in the wound and brought out through a separate stab incision. Prior to reapproximating the wound the fill port was identified using the magnifinder and accessed using 22-gauge needle. A total of 350 mL were placed prior to closure. Wound was reapproximated using 2-0 Vicryl deep dermal suture, 3-0 PDS superficial dermal suture and 3-0 Monocryl running subcuticular suture. Drain was sutured in place using 3-0 nylon. Dermabond was applied. An similar procedure was performed on the right side, but without reinforcement of the medial pectoralis as this was intact. The drain site was dressed using xeroform, skin prep and Optifoam, dermabond applied to the incisions. Procedure was tolerated well. tolerated well. Camila Camilo PA-C was present and scrubbed throughout the mastectomies assisting Dr. Howard and assisting me with reconstruction. She was instrumental in providing exposure during elevation of pectoralis muscle and suturing of the AlloDerm as well as filling expanders and assisting in wound closure. I attest to the content of the Intraoperative Record and any orders documented therein. Any exceptions are noted below.
--- NOTE | 2019-02-06 14:07 | Anesthesiology Progress Note ---
Date of Service February 06, 2019 Anesthesia Post Procedure Vital Signs Vital Signs: Temp Pulse Pulse Resp BP Pulse Ox 02/06/19 14:05 87 16 147/83 H 96 02/06/19 13:55 36.8 C 83 16 145/85 H 95 02/06/19 13:45 77 17 132/78 95 02/06/19 13:35 87 13 138/76 93 02/06/19 13:25 86 15 143/75 H 92 02/06/19 13:16 36.9 C 82 20 125/73 94 02/06/19 05:51 36.8 C 83 16 140/87 94 Transfer of Care Handoff Completed per policy Notes Mental Status: alert / awake / arousable and participated in evaluation Patient Amnestic to Procedure: Yes Nausea / Vomiting: adequately controlled Pain: adequately controlled Airway Patency, RR, SpO2: stable & adequate BP & HR: stable & adequate Hydration State: stable & adequate Anesthetic Complications: no major complications apparent and Pt Satisfied with anesthetic care
[2019-02-06] MEDS: OXYCODONE/ACETAMINOPHEN 5mg/325mg TAB PO PRN ×3 (16:34→23:12)
[2019-02-06] MEDS: D5W AND 1/2NSS + 20MEQ KCL 20 MEQ/1,000 ML BAG IV SCH (16:35)
[2019-02-06] MEDS: CEFAZOLIN 2000MG 2,000 MG/15 ML SYR IV SCH ×2 (16:35→23:14)
[2019-02-06] MEDS ORDERED: CITALOPRAM 20 MG TAB PO SCH (21:00)
[2019-02-07 03:05] VITALS: TEMP 98.2
[2019-02-07] MEDS: D5W AND 1/2NSS + 20MEQ KCL 20 MEQ/1,000 ML BAG IV SCH (05:40)
[2019-02-07] MEDS ORDERED: LEVOTHYROXINE SODIUM 75 MCG TABLET PO SCH (06:30)
[2019-02-07] MEDS: OXYCODONE/ACETAMINOPHEN 5mg/325mg TAB PO PRN (07:33)
[2019-02-07 07:40] VITALS: BP 127/85; PULSE 81; O2SAT 91
--- NOTE | 2019-02-07 08:07 | Anesthesiology Progress Note ---
Date of Service February 07, 2019 Anesthesia Post Procedure Vital Signs Vital Signs: Temp Pulse Pulse Resp BP Pulse Ox 02/07/19 07:40 36.8 C 81 16 127/85 91 02/07/19 03:04 36.8 C 87 15 107/68 92 02/06/19 23:03 92 02/06/19 23:02 36.9 C 89 14 114/73 88 L 02/06/19 19:26 36.8 C 95 H 18 128/75 95 02/06/19 16:32 36.5 C 87 16 137/85 93 02/06/19 15:33 36.3 C L 78 15 133/81 94 02/06/19 15:03 36.5 C 76 16 147/85 H 92 02/06/19 14:30 36.5 C 90 16 152/86 H 95 02/06/19 14:05 87 16 147/83 H 96 02/06/19 13:55 36.8 C 83 16 145/85 H 95 02/06/19 13:45 77 17 132/78 95 02/06/19 13:35 87 13 138/76 93 02/06/19 13:25 86 15 143/75 H 92 02/06/19 13:16 36.9 C 82 20 125/73 94 Pain Intensity Right Breast: Pain Intensity: 5 Notes Mental Status: alert / awake / arousable and participated in evaluation Patient Amnestic to Procedure: Yes Nausea / Vomiting: adequately controlled Pain: adequately controlled Airway Patency, RR, SpO2: stable & adequate BP & HR: stable & adequate Hydration State: stable & adequate Anesthetic Complications: no major complications apparent and Pt Satisfied with anesthetic care
--- NOTE | 2019-02-07 08:49 | Surgery Progress Note ---
Date of Service February 07, 2019 Assessment & Plan (1) Encounter for breast reconstruction following mastectomy: s/p bilateral mastectomy by Dr. Howard with immediate first stage breast reconstruction using tissue expanders and acellular dermal matrix by Dr. Castro. 1. POD #1. drain output decreasing. 30cc each drain last shift. Patient has good pain control, is voiding and tolerating regular diet. Will d/c home today and f/u in office tomorrow (2) BRCA gene mutation positive: Subjective Patient is resting comfortably. She has good pain control. She is tolerating regular diet. Physical Exam Constitutional: WD/WN, vitals as above Skin: + incision (CDI. some ecchymosis as expected. flaps appear viable) Results & Data Vital Signs (Past 12 Hours) Vital Signs Temp Pulse Resp BP Pulse Ox 02/07/19 07:40 36.8 C 81 16 127/85 91 02/07/19 03:04 36.8 C 87 15 107/68 92 02/06/19 23:03 92 02/06/19 23:02 36.9 C 89 14 114/73 88 L
[2019-02-07] MEDS ORDERED: PANTOprazole 40 MG TAB PO SCH (09:00)
[2019-02-07] MEDS ORDERED: MULTIVITAMIN TAB PO SCH (09:00)
--- NOTE | 2019-02-07 10:24 | Discharge Summary ---
Date of Service February 07, 2019 Admission HPI Per Admitting Provider see admission H&P Admission Exam Per Admitting Provider see admission H&P Principal Diagnosis BRCA mutation, history of left breast cancer Discharge Exam Constitutional WD/WN, vitals as above Skin + incision (CDI. some ecchymosis as expected. flaps appear viable) Discharge Data Allergies Allergy/AdvReac Type Severity Reaction Status Date / Time silver Allergy Intermediate Blister Verified 02/06/19 05:48 [From Tegaderm AG Mesh] Ervacze-Syc-Gze Reductase Allergy Mild Unknown Verified 02/06/19 08:10 Inhibitor Procedures Performed Operation Date: 02/06/19 07:30 Actual Procedures p Bilateral Prophylactic Breast Mastectomy(Bilateral) - Heber Howard DO, FACS s First Stage Bilateral Immediate Breast Reconstruction with Tissue Hardware Designer and Acellular Dermal Matrix - Dr. Castro(Bilateral) - Ilda Castro MD Hospital Course (1) Encounter for breast reconstruction following mastectomy: Patient presented to [facility] with history of breast cancer and BRCA mutation. She was taken to the OR and underwent bilateral mastectomy with Dr. Howard and immediate breast reconstruction using tissue expanders and acellular dermal matrix with Dr. Castro. There were no intraoperative complications. She was taken to recovery and transferred to med/surg for observation. On POD#1, she was feeling well. She was tolerating a regular diet and ambulating. On exam, her vitals were stable. Her incisions were CDI. Her drains had appropriate output. She was discharged home with instructions to follow-up in the office in one day. (2) BRCA gene mutation positive: Total Time Total Time Spent Total Time Spent (In Minutes): 10 Discharge Plan Discharge Items Patient Disposition: Home - Self-Care Reason For Visit: History of Breast Cancer, Genectic Susceptibility Discharge Diagnosis: s/p bilateral mastectomy with immediate reconstruction Discharge Goals: Decrease discomfort and Improve function Activity: As commented below Non-emergency contact: Surgeon Call non-emergency contact if: you have any medication questions and your pain is not controlled Follow-up/Referrals: Madhuri Lopez MD [Primary Care Provider] - Diet: Regular Addtl Provider Instructions: ACTIVITY RECOMMENDATIONS: __Normal activities _x_No bending, lifting or straining __No driving __Driving allowed when you are off pain medications _x_Walking permitted __You should have help at home for ___ days DRESSINGS: __No dressings required _x_Keep dressings dry/in place until first office visit __Remove dressings ___ and leave dressings off __Apply ice ___ days __Remove dressings and reapply garment __Apply antibiotic ointment (Bacitracin, Neosporin, etc) to wounds 3-4 times/day for 10 days BATHING: __Keep dressings dry _x_Sponge bathing permitted away from incision area __Showering permitted _x_No swimming, hot tubs or soaking in a tub MEDICATIONS: Resume previous medications unless instructed otherwise by your surgeon. _x_Do not use aspirin, Motrin, Advil or Ibuprofen as these may promote bleeding. Please use Tylenol. _x_Prescription(s) provided: antibiotics and pain medication provided at your last office visit OTHER INSTRUCTIONS: _x_Record drain output 2-3 times per day SPECIAL CARE INSTRUCTIONS: * It is normal to have a mild fever after surgery. If your temperature is higher than 101.5 degrees F, please call the office at [phone]. * Constipation is a typical side effect of pain medication. An [id number] stool softener will help relieve this. * Leaking around surgical drains may occur and should not cause concern. Sometimes these drains become clogged. If this happens, remove the bulb and milk the clot out of the tube, then replace the bulb. * Drainage from wounds after liposuction is normal and should be expected. Garments will become soiled. You should protect furniture and bedding. This drainage should mostly subside within 2-3 days. Leave garments in place unless instructed to remove them. * If you have unusual drainage from a wound or are concerned you have an in fection or have any questions or concerns, please call the office at [phone]. FOLLOW UP VISIT: If not already scheduled, please call the office, , when you return home after surgery to schedule an appointment to be seen in _1__ days. Prescriptions: Continued citalopram 20 mg Tablet 20 mg PO QPM RF: 0 esomeprazole magnesium [Nexium] 20 mg Capsule,Delayed Release(Dr/Ec) 20 mg PO QAM RF: 0 levothyroxine 75 mcg Capsule 75 mcg PO QAM RF: 0 Stand-Alone Forms: My [facility]/Other Patient Handouts: Tube Gopal Cain Drainage Care Discharge Orders: Discharge Order (Routine); Ordered 02/07/19 Ordered By: Camila Camilo Admission Data Admit Date/Time: 02/06/19 13:09 Attending Provider: Ilda Castro Admit Provider: Ilda Castro Primary Care Provider: Madhuri Lopez Service: Surgical Services Other Interventions: Discharge Summary Assessment (RN) Last Done: 02/07/19 10:16 Pending Studies at Discharge: Yes Studies:: pathology
== END 2019-02-07 10:47 | disposition home or self-care (01) ==
LOC: ASU 05:20 → 3N 05:20